=== PATIENT | female | born 1970 | race Caucasian/White ===

== ENCOUNTER 2022-05-02 09:04 | Outpatient (CLI) | payer BC, SELFPAY ==
--- NOTE | ~2022-05-02 | US_ITS ---
EXAMINATION: US pelvic complete w TV DATE: 05/02/2022 10:38 INDICATION: Several months of pelvic and perineal pain TECHNIQUE: Multiple transabdominal and endovaginal sonographic images of the pelvis were obtained. COMPARISON: None. FINDINGS: The uterus measures 9.8 x 4.9 x 6.1 cm. The endometrial complex measures 4 mm in thickness. 6 mm ane choic fluid collection within the endometrial complex at right side of the uterine fundus. No interna l yolk sac or pole identified or definitive double decidua sign to suggest a gestational sac. T here is heterogeneous echogenicity to the myometrium with striated pattern of refraction artifact and suggestion of a thickened poorly defined junctional zone. Appearance consistent with diffuse adenomy osis. A couple anechoic likely nabothian cysts at the cervix, the larger measuring 7 mm. The right ov suzy measures 3.5 x 1.5 x 1.3 cm. There are a few anechoic cysts/follicles at the right ovary, the lar gest measuring 1.5 cm in maximal diameter. The left ovary measures 3.0 x 2.0 x 1.2 cm. 1.6 cm anechoi c cyst at the left adnexa. Vascular flow identified at both ovaries on color Doppler. There is no darlin e fluid in the pelvis. IMPRESSION: 1. Heterogeneous myometrial echogenicity with striated pattern of refraction artifact and thickened a ppearing ill-defined junctional zone suggestive of adenomyosis. 2. Indeterminate 6 mm cystic structure at the fundus tensely related to adenomyosis or loculated flui d within the endometrial canal. No findings to specifically suggest a gestational sac but would consi liss correlation with beta-hCG levels to exclude an early . Reviewed, dictated and finalized at location [facility]. IMPRESSION: 1. Heterogeneous myometrial echogenicity with striated pattern of refraction ar tifact and thickened appearing ill-defined junctional zone suggestive of adenom yosis. 2. Indeterminate 6 mm cystic structure at the fundus tensely related to adenomy osis or loculated fluid within the endometrial canal. No findings to specifical ly suggest a gestational sac but would consider correlation with beta-hCG level s to exclude an early .
== END 2022-05-02 09:05 | disposition home or self-care (01) ==
PROVIDERS: PCP Internal Medicine; Visit Provider Nurse Practitioner
DX: R10.2 Pelvic and perineal pain (principal); R93.89 Abnormal findings on diagnostic imaging of other specified body structures
CPT/HCPCS: 76830; 76856

== ENCOUNTER → 2022-10-24 08:48 | Outpatient (CLI) | payer BC, SELFPAY ==
--- NOTE | ~2022-10-24 | XR_ITS ---
AP and lateral views of the right hip Clinical history: Pain Findings: No acute fracture or dislocation is seen. Osseous alignment is anatomic. Right hip and righ t SI joint are preserved. Soft tissues are unremarkable. Impression: No significant abnormality is seen. Reviewed, dictated and finalized at [facility]. INSPECTOR Impression: No significant abnormality is seen.
== END ==
PROVIDERS: PCP Internal Medicine; Visit Provider Nurse Practitioner
DX: M25.551 Pain in right hip (principal)
CPT/HCPCS: 73502